=== PATIENT | female | born 1950 | race Caucasian/White ===

== ENCOUNTER 2022-02-03 14:11 | Emergency (ER) | payer MEDICARE, BC, SELFPAY ==
[2022-02-03] VITALS (36 sets, daily range): BP systolic 125–201; BP diastolic 66–109; PULSE 63–78; RESP 36; TEMP 36.3; O2SAT 90–100; BMI 26.6
--- NOTE | 2022-02-03 14:27 | ED.NURSE ---
EKG and cardiac cath lab radiology technologist placed on arrival. IV established and blood withdrawn for labs. SL nitro administered with MD verbal order.
--- NOTE | 2022-02-03 14:37 | CRLHL7_ITS ---
For Patients: As a result of the Century Cures Act, medical imaging exams and procedure reports are released immediately into your electronic medical record. You may view this report before your referring provider. If you have questions, please contact your health care provider. Indication: Sudden epigastric pain hypertension Technique: Contrast CT chest abdomen and pelvis Comparison: No comparison Findings: Normal caliber thoracic aorta. There is no aneurysm or dissection seen. Heart size is normal there is no pericardial effusion or pleural effusion. No abdominal aortic aneurysm or dissection Ones appear clear there is a 4 millimeter pulmonary nodule right middle lobe on /. There is no effusion. There is a 4 millimeter nodule right lower lobe on series 5, image 61 There is a small hiatal hernia. Spleen appears unremarkable adrenal glands are unremarkable. Geographic low-attenuation area within the right hepatic lobe during arterial phase imaging. Cholecystectomy minimal biliary dilatation liver is otherwise unremarkable. There is several small low-attenuation lesions in the pancreas largest cyst in the tail measuring 1.6 centimeters. There is no pancreatic ductal dilatation these could represent small IPMNs. Kidneys are unremarkable. Urinary bladder unremarkable abundant stool in the colon. The bowel is unremarkable. Minimal diverticulosis. No suspicious bony lesions. Impression: 1. No thoracic aortic aneurysm or dissection. Small pulmonary nodules measuring up to 4 millimeters follow-up per Fleischner society guidelines no acute pulmonary findings. 2. Geographic low-attenuation area in the right hepatic lobe seen during arterial phase imaging. This could be related to an area of geographic fatty infiltration. Biliary process not completely occluded would recommend MRI for further evaluation. 3. Small low-attenuation lesions in the pancreas measuring up to 1.6 centimeters in the tail of the pancreas could represent IPMNs. This can also be assessed by MRI. Please note that all CT scans at this facility use dose modulation, iterative reconstruction, and/or weight-based dosing when appropriate to reduce radiation dose to as low as reasonably achievable. Dictated by Suki Mina MD @ 02/03/2022 3:43:23 PM (Electronically Signed)
[2022-02-03] MEDS: MORPHINE 4 MG/ML INJ IVP (14:41)
[2022-02-03] MEDS: LABETALOL HCL 5 MG/ML inj 10 MG IVP (14:45)
[2022-02-03 14:51] LABS: Creatinine, Point-of-Care* 0.9 mg/dl (0.6-1.3)
--- NOTE | 2022-02-03 15:00 | ED_ITS ---
HPI - General Adult General Date Seen: 02/03/22 Chief complaint: Abdominal Pain Stated complaint: Chest pain, short of breath Time Seen by Provider: 02/03/22 14:19 Source: patient History of Present Illness HPI narrative: Patient is a 72-year-old woman here with her via private car for evaluation of sudden-onset severe epigastric pain without radiation. This started just shortly prior to arrival. She said that she had been feeling well until onset. She denies any history of similar pain. She says she has a history of thyroid disease but denies any other medical history aside from appendectomy and cholecystectomy. She denies any heart disease or hypertension. She did feel somewhat short of breath and had 1 episode of vomiting. She denies any recent abdominal pain, vomiting or diarrhea. She has not had cough, exertional chest pain, or shortness of breath. She has not had lower extremity swelling or pain. She has not had fevers or unusual weight loss. She did not take any medications at home. She did try to lay down for a little bit, but was not feeling any better so they present to the emergency department. She does not smoke, drinks rarely, has not had any alcohol today Related Data Home Medications Medication Instructions Recorded Confirmed levothyroxine 137 mcg capsule 137 mcg PO DAILY 02/03/22 02/03/22 Allergies Allergy/AdvReac Type Severity Reaction Status Date / Time Penicillins Allergy Intermediate Verified 02/03/22 14:19 Review of Systems Status of ROS: Reports: 10 or more systems reviewed and unremarkable except as noted in History and below [facility] Social History How often do you have a drink containing alcohol: monthly or less AUDIT-C Alcohol total score: 1 Non-prescribed substance use: denies use Exam Narrative: Exam Narrative: Vital signs as noted above. In general, an alert, nontoxic woman, appears very uncomfortable, anxious. Head: Normocephalic, atraumatic. Eyes: Pupils are equal reactive. Extraocular movements are full. Conjunctivae are normal. No scleral icterus. ENT: Mucous membranes are moist. Throat is normal. Neck: Supple without lymphadenopathy. Heart: Regular rate and rhythm. No murmur or rub. Lungs: Clear bilaterally. No increased work of breathing, crackles or wheezes. Tachypneic. Abdomen: Soft and nontender. No organomegaly. No obvious masses. Extremities: Well perfused. No edema. No calf tenderness. Pulses intact. Neurologic: Patient is alert and oriented to person and place. Speech is fl uent. Face is symmetric. Moves all extremities equally. Affect: Anxious. Skin: Warm and dry. Well perfused. Const: Vital Signs, click to edit/add: Vital Signs - 24 hr 02/03/22 14:15 02/03/22 14:40 02/03/22 14:33 Temperature 97.4 F L Pulse Rate Pulse Rate [Pulse Oximeter] 76 Respiratory Rate 36 H Blood Pressure Blood Pressure [Le ft Upper Arm] 201/109 H 143/85 H Pulse Oximetry 100 97 Oxygen Delivery Me thod Room Air 02/03/22 14:33 02/03/22 14:34 02/03/22 14:42 Temperature Pulse Rate 75 77 78 Pulse Rate [Pulse Oximeter] Respiratory Rate Blood Pressure 187/106 H 143/85 H Blood Pressure [Le ft Upper Arm] Pulse Oximetry 97 97 98 Oxygen Delivery Me thod 02/03/22 14:43 02/03/22 15:04 02/03/22 15:05 Temperature Pulse Rate 73 73 73 Pulse Rate [Pulse Oximeter] Respiratory Rate Blood Pressure 147/78 H Blood Pressure [Le ft Upper Arm] Pulse Oximetry 98 98 97 Oxygen Delivery Me thod 02/03/22 15:06 02/03/22 15:15 02/03/22 15:21 Temperature Pulse Rate 73 72 72 Pulse Rate [Pulse Oximeter] Respiratory Rate Blood Pressure 136/74 Blood Pressure [Le ft Upper Arm] Pulse Oximetry 97 97 93 Oxygen Delivery Me thod 02/03/22 15:30 02/03/22 15:41 02/03/22 15:45 Temperature Pulse Rate 75 74 76 Pulse Rate [Pulse Oximeter] Respiratory Rate Blood Pressure 132/66 Blood Pressure [Le ft Upper Arm] Pulse Oximetry 90 94 95 Oxygen Delivery Me thod 02/03/22 16:00 02/03/22 16:02 02/03/22 16:15 Temperature Pulse Rate 74 73 75 Pulse Rate [Pulse Oximeter] Respiratory Rate Blood Pressure 136/70 Blood Pressure [Le ft Upper Arm] Pulse Oximetry 94 93 90 Oxygen Delivery Me thod 02/03/22 16:21 02/03/22 16:30 02/03/22 16:45 Temperature Pulse Rate 73 71 67 Pulse Rate [Pulse Oximeter] Respiratory Rate Blood Pressure 130/69 Blood Pressure [Le ft Upper Arm] Pulse Oximetry 93 91 96 Oxygen Delivery Me thod 02/03/22 16:46 02/03/22 17:00 02/03/22 17:01 Temperature Pulse Rate 68 69 70 Pulse Rate [Pulse Oximeter] Respiratory Rate Blood Pressure 143/73 H Blood Pressure [Le ft Upper Arm] Pulse Oximetry 97 96 97 Oxygen Delivery Me thod 02/03/22 17:02 02/03/22 17:42 02/03/22 17:43 Temperature Pulse Rate 67 72 68 Pulse Rate [Pulse Oximeter] Respiratory Rate Blood Pressure 140/80 H Blood Pressure [Le ft Upper Arm] Pulse Oximetry 95 96 99 Oxygen Delivery Me thod 02/03/22 17:45 02/03/22 18:00 02/03/22 18:01 Temperature Pulse Rate 67 69 70 Pulse Rate [Pulse Oximeter] Respiratory Rate Blood Pressure 153/83 H Blood Pressure [Le ft Upper Arm] Pulse Oximetry 99 97 94 Oxygen Delivery Me thod 02/03/22 18:15 02/03/22 18:21 02/03/22 18:30 Temperature Pulse Rate 69 70 67 Pulse Rate [Pulse Oximeter] Respiratory Rate Blood Pressure 139/69 Blood Pressure [Le ft Upper Arm] Pulse Oximetry 97 96 96 Oxygen Delivery Me thod 02/03/22 18:41 02/03/22 18:45 02/03/22 19:00 Temperature Pulse Rate 68 67 63 Pulse Rate [Pulse Oximeter] Respiratory Rate Blood Pressure 125/74 Blood Pressure [Le ft Upper Arm] Pulse Oximetry 91 93 [facility] 19:01 Temperature Pulse Rate 66 Pulse Rate [Pulse Oximeter] Respiratory Rate Blood Pressure 135/74 Blood Pressure [Le ft Upper Arm] Pulse Oximetry 93 Oxygen Delivery Me thod Documenting provider has reviewed patient's vital signs: yes Course Course Hospital Course: Patient had an IV placed and had an EKG on arrival which by my review showed a normal sinus rhythm, ventricular rate of 73 beats per minute. No acute ST segment changes by my review. I looked with the bedside ultrasound. She does not have evidence of an enlarged right atrium right ventricle. The left ventricle appears to be doing well. I do not see a pericardial effusion. Aorta appears normal on ultrasound. Nonetheless, my immediate concern given sudden onset of severe pain and marked hypertension was for possible aortic pathology verses acute coronary syndrome. I did try a nitroglycerin sublingually initially, this did not provide any relief. I therefore gave her 4 mg of morphine as well as a 0.5 mg of Ativan and 5 mg of labetalol. I had initially planned to give her more labetalol but her blood pressure did come back to 145/85 after the and nitroglycerin. Her map was still elevated at 109 however so I did give her labetalol prior to her going off to CT scan. A point of care troponin was 0, point of care creatinine was 0.9. By my review, the CT scan showed a normal aorta. She did have an area of low attenuation in the liver which was of unclear significance to me. I did not see any other acute findings. Final radiology read was as follows: Impression: 1. No thoracic aortic aneurysm or dissection. Small pulmonary nodules measuring up to 4 millimeters follow-up per Fleischner society guidelines no acute pulmonary findings. 2. Geographic low-attenuation area in the right hepatic lobe seen during arterial phase imaging. This could be related to an area of geographic fatty infiltration. Biliary process not completely occluded would recommend MRI for further evaluation. 3. Small low-attenuation lesions in the pancreas measuring up to 1.6 centimeters in the tail of the pancreas could represent IPMNs. This can also be assessed by MRI. I discussed her CT findings with the manager mission on-call for [facility], as we did not have MRI available on this Saturday, Lora Akers. She felt that an ultrasound would be adequate to evaluate for possible biliary ductal dilation, ductal stone or other acute abnormality, and that MRI can be deferred for outpatient workup. Her labs were essentially normal with the exception of elevated LFTs. Coags were normal, D-dimer was 0.42. Blood gas was normal with the exception of a pCO2 of 37 I think consistent with her hyperventilation on arrival. Metabolic panel was normal. Lactate was 1.6. AST was 195, ALT was 103. Alk-phos notably was normal at 147. CRP was less than 0.5. BNP was normal at 92. Lipase was normal at 89. COVID was negative. Initial point of care troponin was 0. This was at 14 20. Her 2nd troponin was ordered for 16 30, but was not drawn until 15. Her 2nd troponin returned at 0.03, still normal per our reference range. Patient's pain was well controlled throughout the rest of her stay, though she did note some ongoing mild dull pain. She went on to have an ultrasound which is read as follows: 1. Coarsened hepatic parenchymal echogenicity consistent with hepatocellular disease, possibly cirrhosis. 2. Post cholecystectomy with normal bile ducts. 3. Small pancreatic cystic lesions, the largest measuring up to 1.8 cm. Comparison of recent CT with any prior imaging recommended. Otherwise, further evaluation with MRI suggested. Otherwise, there is not anything acutely abnormal on her ultrasound aside from the dilated common bile duct at 7 mm. There is no evidence of stones. She has normal alk-phos. White blood cell count is mildly elevated at 13. She continues to have some pain although it is significantly improved. Requested additional pain medication here and had an oxycodone orally. I did do a 3rd troponin as there was a slight shift up in her troponin from 0-0.3, and her 3rd troponin was again 0.3, stable. A repeat EKG was unchanged. Her heart score is 3, she is relatively low risk aside from her age. I think acute coronary syndrome is adequately ruled out at this point. I do have concerns about possible choledocholithiasis given her ultrasound. It is possible this is residual after her cholecystectomy, but I do not have previous imaging to document that. I talked again with GI at [facility], he would recommend MRCP prior to discharge, which I am not able to do tonight. Fortunately, [facility] does have bed availability tonight and I am therefore able to transfer her there for further evaluation and GI consult. Patient and her are agreeable with this. Vital Signs Vital signs: Initial Vital Signs Temperature 97.4 F L 02/03/22 14:15 Temperature Source Temporal Artery Scan 02/03/22 14:15 Pulse Rate 76 02/03/22 14:15 Respiratory Rate 36 H 02/03/22 14:15 Blood Pressure 201/109 H 02/03/22 14:15 Blood Pressure Mean 139 02/03/22 14:15 Blood Pressure Position Supine 02/03/22 14:15 Pulse Oximetry 100 02/03/22 14:15 Oxygen Delivery Method 02/03/22 14:15 Vital Signs Temperature 97.4 F L 02/03/22 14:15 Pulse Rate 76 02/03/22 14:15 Respiratory Rate 36 H 02/03/22 14:15 Blood Pressure 201/109 H 02/03/22 14:15 Pulse Oximetry 100 02/03/22 14:15 Oxygen Delivery Method 02/03/22 14:15 Temperature 97.4 F L 02/03/22 14:15 Pulse Rate 66 02/03/22 19:01 Respiratory Rate 36 H 02/03/22 14:15 Blood Pressure 135/74 02/03/22 19:01 Pulse Oximetry 93 02/03/22 19:01 Oxygen Delivery Method 02/03/22 14:15 Medical Decision Making Lab Data Labs: Lab Results 02/03/22 02/03/22 02/03/22 Range/Units 14:20 14:20 14:20 WBC (4.50-11.00) K/uL RBC (4.00-5.20) m/uL Hgb (12.0-16.0) gm/dL Hct (33.0-51.0) % MCV (80-100) fL MCH (26-34) pg MCHC (32-36) gm/dL RDW Coeff of Charisse (11.5-15.5) % Plt Count (140-440) K/uL Neut % (Auto) (42.0-72.0) % Lymph % (Auto) (20-44) % Lake % (Auto) (0.0-11.0) % Eos % (Auto) (0.0-7.0) % Baso % (Auto) (0.0-3.0) % Neut # (Auto) (1.7-7.0) K/uL Lymph # (Auto) (0.90-2.90) K/uL Lake # (Auto) (0.00-0.90) K/UL Eos # (Auto) (0.00-0.50) K/uL Baso # (Auto) (0.00-0.30) K/uL INR 0.90 L (0.91-1.10) APTT 29 (23-33) Seconds D-Dimer Quant (PE/DVT) 0.42 (0.00-0.50) ug/ml VBG pH (7.32-7.43) VBG pCO2 (40-50) mmHG VBG pO2 (25-47) mmHG VBG HCO3 (21-28) mmol/L Sodium 136 (135-149) mmol/L Potassium 3.8 (3.6-5.1) mmol/L Chloride 104 (96-114) mmol/L Carbon Dioxide 21 (20-32) mmol/L BUN 19 (7-30) mg/dL Creatinine 0.8 (0.5-1.5) mg/dL Estimated Creat Clear 45.09 Estimated GFR 78 ml/min Glucose 111 (60-115) mg/dL Lactate (0.5-1.9) mmol/L Calcium 9.1 (8.4-10.6) mg/dL Total Bilirubin 1.0 (0.1-1.5) mg/dL Direct Bilirubin 0.4 (0.0-0.5) mg/dL AST 195 H (12-35) U/L ALT 103 H (4-35) U/L Alkaline Phosphatase 147 (40-150) U/L C-Reactive Protein < 0.5 L (0.5-1.0) mg/dL NT-Pro-B Natriuret Pep 92 pg/mL Total Protein 8.1 (6.0-8.3) g/dL Albumin 4.8 (3.3-5.0) g/dL Lipase 89 (23-300) U/L SARS-CoV-2 (PCR) (Negative) POC Creatinine 0.9 (0.6-1.3) mg/dl POC Troponin I (0.01-0.04) ng/ml 02/03/22 02/03/22 02/03/22 Range/Units 14:20 14:20 14:38 WBC (4.50-11.00) K/uL RBC (4.00-5.20) m/uL Hgb (12.0-16.0) gm/dL Hct (33.0-51.0) % MCV (80-100) fL MCH (26-34) pg MCHC (32-36) gm/dL RDW Coeff of Charisse (11.5-15.5) % Plt Count (140-440) K/uL Neut % (Auto) (42.0-72.0) % Lymph % (Auto) (20-44) % Lake % (Auto) (0.0-11.0) % Eos % (Auto) (0.0-7.0) % Baso % (Auto) (0.0-3.0) % Neut # (Auto) (1.7-7.0) K/uL Lymph # (Auto) (0.90-2.90) K/uL Lake # (Auto) (0.00-0.90) K/UL Eos # (Auto) (0.00-0.50) K/uL Baso # (Auto) (0.00-0.30) K/uL INR (0.91-1.10) APTT (23-33) Seconds D-Dimer Quant (PE/DVT) (0.00-0.50) ug/ml VBG pH 7.414 (7.32-7.43) VBG pCO2 37 L (40-50) mmHG VBG pO2 177.0 H (25-47) mmHG VBG HCO3 24 (21-28) mmol/L Sodium (135-149) mmol/L Potassium (3.6-5.1) mmol/L Chloride (96-114) mmol/L Carbon Dioxide (20-32) mmol/L BUN (7-30) mg/dL Creatinine (0.5-1.5) mg/dL Estimated Creat Clear Estimated GFR ml/min Glucose (60-115) mg/dL Lactate 1.6 (0.5-1.9) mmol/L Calcium (8.4-10.6) mg/dL Total Bilirubin (0.1-1.5) mg/dL Direct Bilirubin (0.0-0.5) mg/dL AST (12-35) U/L ALT (4-35) U/L Alkaline Phosphatase (40-150) U/L C-Reactive Protein (0.5-1.0) mg/dL NT-Pro-B Natriuret Pep pg/mL Total Protein (6.0-8.3) g/dL Albumin (3.3-5.0) g/dL Lipase (23-300) U/L SARS-CoV-2 (PCR) Negative SARS-CoV-2 (Negative) POC Creatinine (0.6-1.3) mg/dl POC Troponin I 0.00 L (0.01-0.04) ng/ml 02/03/22 02/03/22 02/03/22 Range/Units 17:16 18:29 18:34 WBC 13.08 H (4.50-11.00) K/uL RBC 4.82 (4.00-5.20) m/uL Hgb 14.6 (12.0-16.0) gm/dL Hct 43.1 (33.0-51.0) % MCV 89 (80-100) fL MCH 30 (26-34) pg MCHC 34 (32-36) gm/dL RDW Coeff of Charisse 12.1 (11.5-15.5) % Plt Count 307 (140-440) K/uL Neut % (Auto) 61.9 (42.0-72.0) % Lymph % (Auto) 28.7 (20-44) % Lake % (Auto) 6.2 (0.0-11.0) % Eos % (Auto) 2.7 (0.0-7.0) % Baso % (Auto) 0.4 (0.0-3.0) % Neut # (Auto) 8.10 H (1.7-7.0) K/uL Lymph # (Auto) 3.80 H (0.90-2.90) K/uL Lake # (Auto) 0.80 (0.00-0.90) K/UL Eos # (Auto) 0.40 (0.00-0.50) K/uL Baso # (Auto) 0.10 (0.00-0.30) K/uL INR (0.91-1.10) APTT (23-33) Seconds D-Dimer Quant (PE/DVT) (0.00-0.50) ug/ml VBG pH (7.32-7.43) VBG pCO2 (40-50) mmHG VBG pO2 (25-47) mmHG VBG HCO3 (21-28) mmol/L Sodium (135-149) mmol/L Potassium (3.6-5.1) mmol/L Chloride (96-114) mmol/L Carbon Dioxide (20-32) mmol/L BUN (7-30) mg/dL Creatinine (0.5-1.5) mg/dL Estimated Creat Clear Estimated GFR ml/min Glucose (60-115) mg/dL Lactate (0.5-1.9) mmol/L Calcium (8.4-10.6) mg/dL Total Bilirubin (0.1-1.5) mg/dL Direct Bilirubin (0.0-0.5) mg/dL AST (12-35) U/L ALT (4-35) U/L Alkaline Phosphatase (40-150) U/L C-Reactive Protein (0.5-1.0) mg/dL NT-Pro-B Natriuret Pep pg/mL Total Protein (6.0-8.3) g/dL Albumin (3.3-5.0) g/dL Lipase (23-300) U/L SARS-CoV-2 (PCR) (Negative) POC Creatinine (0.6-1.3) mg/dl POC Troponin I 0.03 0.03 (0.01-0.04) ng/ml Discharge Plan Discharge Clinical Impression: Common bile duct dilation, Acute epigastric pain Patient Disposition: [facility] Condition: Improved Prescriptions: No Action levothyroxine 137 mcg capsule 137 mcg PO DAILY Stand Alone Forms: MyHealth Info Instructions
[2022-02-03] MEDS: 0.9 % SODIUM CHLORIDE 500 ML 500 ML IV (15:04)
[2022-02-03 15:05] LABS: Albumin* 4.8 g/dL (3.3-5.0); Chloride* 104 mmol/L (96-114)
[2022-02-03 15:06] LABS: Potassium* 3.8 mmol/L (3.6-5.1); Sodium* 136 mmol/L (135-149)
[2022-02-03 15:07] LABS: Creatinine* 0.8 mg/dL (0.5-1.5); Est. Creatinine Clearance* 45.09; Estimated Glomerular Filt Rate 78 ml/min
[2022-02-03 15:08] LABS: Alanine Aminotransferase* 103 U/L (4-35); Alkaline Phosphatase* 147 U/L (40-150); Aspartate Amino Transferase* 195 U/L (12-35); Bilirubin Direct* 0.4 mg/dL (0.0-0.5); Blood Urea Nitrogen* 19 mg/dL (7-30); Glucose* 111 mg/dL (60-115); Lipase* 89 U/L (23-300); Total Protein* 8.1 g/dL (6.0-8.3)
[2022-02-03 15:09] LABS: Calcium* 9.1 mg/dL (8.4-10.6)
[2022-02-03 15:10] LABS: HCO3 VBG 24 mmol/L (21-28); Lactate* 1.6 mmol/L (0.5-1.9); PCO2 VBG 37 mmHG (40-50); pH VBG 7.414 (7.32-7.43)
[2022-02-03 15:13] LABS: C Reactive Protein* < 0.5 mg/dL (0.5-1.0)
[2022-02-03 15:20] LABS: NT Pro B Type NatriureticPept* 92 pg/mL
[2022-02-03] MEDS: ONDANSETRON 2 MG/ML inj 4 MG IVP (15:31)
[2022-02-03 15:35] LABS: Carbon Dioxide* 21 mmol/L (20-32); Prothrombin Time 12.8 Seconds
[2022-02-03 15:37] LABS: Partial Thromboplastin Time* 29 Seconds (23-33)
[2022-02-03 15:40] LABS: D Dimer Quantitative* 0.42 ug/ml (0.00-0.50)
[2022-02-03 15:40] LABS: SARS PCR* Negative SARS-CoV-2 (Negative)
--- NOTE | 2022-02-03 16:36 | CRLHL7_ITS ---
For Patients: As a result of the Century Cures Act, medical imaging exams and procedure reports are released immediately into your electronic medical record. You may view this report before your referring provider. If you have questions, please contact your health care provider. INDICATION: Epigastric pain and elevated liver function tests. TECHNIQUE: Conventional two-dimensional grayscale ultrasound of the right upper quadrant. COMPARISON: Abdomen/pelvis CT of 02/03/2022. FINDINGS: Postop changes of cholecystectomy are again demonstrated. No biliary ductal dilation is evident. The common bile duct measures 7 mm. The liver parenchyma has a course echotexture, consistent with hepatocellular disease, possibly cirrhosis. Several small cystic areas are demonstrated in the pancreas, as on CT. The largest of these measured up to 1.8 cm. The right kidney is unremarkable. The visualized portion of the abdominal aorta and inferior vena cava are negative. IMPRESSION: 1. Coarsened hepatic parenchymal echogenicity consistent with hepatocellular disease, possibly cirrhosis. 2. Post cholecystectomy with normal bile ducts. 3. Small pancreatic cystic lesions, the largest measuring up to 1.8 cm. Comparison of recent CT with any prior imaging recommended. Otherwise, further evaluation with MRI suggested. Dictated by Tan José MD @ 02/03/2022 6:05:30 PM (Electronically Signed)
[2022-02-03 17:30] LABS: Troponin, Point-of-Care* 0.03 ng/ml (0.01-0.04)
--- NOTE | 2022-02-03 17:55 | ED.NURSE ---
Patient did not want to take chewable ASA stating that taking medications without food makes her sick to her stomach.
[2022-02-03] MEDS: OXYCODONE 5 MG TABLET PO (18:41)
[2022-02-03 18:42] LABS: Basophils Percent Auto 0.4 % (0.0-3.0); Eosinophils Percent Auto 2.7 % (0.0-7.0); Hematocrit 43.1 % (33.0-51.0); Hemoglobin* 14.6 gm/dL (12.0-16.0); Immature Granulocytes Pct Auto 0.1 %; Lymphocytes Percent Auto 28.7 % (20-44); Mean Corpuscular HGB Conc 34 gm/dL (32-36); Mean Corpuscular Hemoglobin 30 pg (26-34); Mean Corpuscular Volume 89 fL (80-100); Monocytes Percent Auto 6.2 % (0.0-11.0); Neutrophils Percent Auto 61.9 % (42.0-72.0); Platelet Count* 307 K/uL (140-440); RDW Coefficient of Variation % 12.1 % (11.5-15.5); Red Blood Count 4.82 m/uL (4.00-5.20); Slide Review Reflex No; White Blood Count* 13.08 K/uL (4.50-11.00)
[2022-02-03 18:46] LABS: Troponin, Point-of-Care* 0.03 ng/ml (0.01-0.04)
--- NOTE | 2022-02-03 20:51 | ED.NURSE ---
Nurse to nurse report given to Mora. Patient will transfer via private car to unit [place] [id number]. Unit phone number and check in procedures reviewed prior to transfer. IV saline locked and wrapped in coban.
== END 2022-02-03 21:36 | disposition home or self-care (01) ==
PROVIDERS: Emergency Provider Emergency Medicine; PCP Family Medicine
DX: R10.13 Epigastric pain (principal); K83.8 Other specified diseases of biliary tract
CPT/HCPCS: 36415; 71270; 74177; 76705; 80048; 80076; 82565; 82803; 83605; 83690; 83880; 84484; 85025; 85379; 85610; 85730; 86140; 87635; 93005; 94761; 96374; 96375; 99285; A9270; J2270; J2405; J7120; Q9967

== ENCOUNTER 2023-12-10 10:30 | Outpatient (RCR) | payer MEDICARE, BC, SELFPAY | END 2023-12-12 11:18 | disposition home or self-care (01) | PROVIDERS: PCP Family Medicine; Visit Provider Orthopaedic Surgery | DX: M75.41 Impingement syndrome of right shoulder (principal); M75.21 Bicipital tendinitis, right shoulder; M75.111 Incomplete rotator cuff tear or rupture of right shoulder, not specified as traumatic; Z51.89 Encounter for other specified aftercare | CPT/HCPCS: 97110; 97162 ==